=== PATIENT | male | born 1990 | race Caucasian/White ===

== ENCOUNTER 2016-11-17 19:48 | Emergency (ER) | payer OTHER ==
[~2016-11-17] VITALS: Ht 157.5 cm; Wt 66.7 kg
[2016-11-17 20:01] VITALS: BP 144/89
--- NOTE | 2016-11-17 20:37 | ED HAND/WRIST INJURY COMPLAINT ---
History of Present Illness General Chief Complaint: Hand or Wrist Injury Stated Complaint: CRUSH INJURY TO R INDEX FINGER YESTERDAY Source: patient, old records Exam Limitations: no limitations Vital Signs & Intake/Output Vital Signs & Intake/Output Vital Signs Date Time Temp Pulse Resp B/P Pulse O2 O2 Flow FiO2 Ox Delivery Rate 11/17 2046 Room Air 11/17 2000 98.6 97 18 144/89 98 Room Air Allergies Coded Allergies: penicillin G (RASH 11/17/16) Reconcile Medications Clindamycin HCl 300 MG CAPSULE 1 CAP PO TID INFECTION Triage Note: PT TO ED C/O CRUSH INJURY TO RT INDEX FINGER YESTERDAY. NOT WORKMAN'S COMP CASE. WAS HOLDING SOMETHING HEAVY AND FINGER WAS CRUSHEDA METAL CAGE. LAST TETANUS APPROX 5 YRS AGO. HAS PROTRUDING TISSUE FROM FINGER TIP, APPROX APPLE SEED SIZE. DID NOT WASH AREA, HAD BACITRACIN ON IT ALL DAY Triage Nurses Notes Reviewed? yes Occurred: yesterday Duration: day(s): (2), constant Timing: recent history Injury Environment: work Severity: mild, moderate Severity Numbers: 5 Pain/Injury Location: Right: 2nd finger. Context: crush Method of Injury: direct blow No Modifying Factors: none Associated Symptoms: none HPI: 26-year-old male presents to emergency room status post sustaining crush injury to the right second finger yesterday while at work when a metal cage came down on the tip of his finger. The patient states she's had persistent aching pain pulsating in nature intermittently since yesterday. He denies any other finger or hand injury he is right-hand dominant.. He denies any difficulty with range of motion of the finger there are no modifying factors or other associated symptoms otherwise. Past History Travel History Traveled to [place] past 21 day No Medical History Any Pertinent Medical History? none Surgical History Surgical History: none Psychosocial History What is your primary language Scottish Tobacco Use: Current Daily Use Daily Tobacco Use Amount/Type: => 5 Cigarettes daily ETOH Use: occasional use Illicit Drug Use: denies illicit drug use Family History Hx Contributory? No Review of Systems Review of Systems Constitutional: Reports: see HPI. All Other Systems: Reviewed and Negative Comments Review of systems: See HPI, All other systems negative. Constitutional, no chills no fever, no malaise HEENT: no sore throat no congestion Cardiovascular: No chest pain , no palpitation Skin, no rashes, no change in skin Respiratory: No dyspnea no cough no sputum GI: No nausea no vomiting, no diarrhea, : No dysuria Muscle skeletal: No joint pain, , no back pain, no neck pain, Neurologic: No numbness no headache Psych: No stress Heme/endocrine: No bruising no bleeding Immunology: No lymphadenopathy Physical Exam Physical Exam General Appearance: well developed/nourished, alert, awake Hand Left: normal inspection Hand Right: normal range of motion Comments: Well-developed well-nourished patient in no apparent distress. Head: Atraumatic, extraocular motion intact Neck: Supple, FROM, no lymphadenopathy Back: FROM, Nontender Cardiovascular: Regular rate and rhythms no murmurs rubs or gallops, Respiratory: Chest nontender.There were no bony deformities, no asymmetry. No respiratory distress. Patient speaking in full complete sentences. Breath sounds clear to auscultation bilaterally: NO W/R/R Shoulder: Atraumatic/Stable. FROM . Elbow: Atraumatic/stable. FROM. No laxity Upper arm/Forearm: Atraumatic. Nontender. No edema, 5 out of 5 event planning intern strength noted to bilateral upper extremities Hand/Wrist: Tenderness to palpation over the distal aspect of the right second finger, there is a scabbed over open avulsion injury to the distal palmar aspect of the right second finger, cap refill is within normal limits sensation is 5 out of 5 FROM both both active and passive of the finger, hand is atraumatic nontender there is no subungual hematoma Pulses: Normal/equal radial pulses bilaterally. Brisk cap refill LOWER Extremities: full range of motion Neuro: Alert and oriented x3 Skin: Warm & dry;No appreciable rash on exposed skin Psych: Mood affect normal, normal memory normal judgment. Progress Differential Diagnosis: abscess, cellulitis, contusion, compartment syndrome, dislocation, felon, fracture, sprain, tenosynovitis Plan of Care: Orders Procedure Date/time Status XRY-FINGERS, RIGHT 11/17 2006 Active X-rays ordered from triage patient is declining for pain when offered The wound was thoroughly irrigated with normal saline Betadine peroxide. Sterile dressing and splint was applied to the finger. Discussed with him his x -ray results need for close follow-up return with any concerns or signs of infection advised return anytime sooner if any concerns, loss of sensation or signs of infection which he is educated on they feel comfortable plan cleared for discharge (THOMAS HURLEY,ARPIT) Diagnostic Imaging: Viewed by Me: Radiology Read. Discussed w/RAD: Radiology Read. Radiology Impression: PATIENT: TIAN SHARMA JR PRESENT AGE: 26 PATIENT ACCOUNT NO: [id number] : 89 LOCATION: [facility] ORDERING PHYSICIAN: JEFF PULLIAM MD SERVICE DATE: 11/17/16-2006 EXAM TYPE: RAD - XRY-FINGERS, RIGHT EXAMINATION: XR FINGER, RIGHT CLINICAL INFORMATION: Right index finger injury. Pain. COMPARISON: None TECHNIQUE: Three views of the right index finger. FINDINGS: There is a small avulsion fracture at the tip of the index finger distal phalangeal tuft. Soft tissues are swollen in this region. No additional fractures. Joints are normal. IMPRESSION: Small nondisplaced avulsion fracture at the tip of the index finger distal phalangeal tuft DICTATED BY: KRISTIN ANDERS MD DATE/TIME DICTATED:11/17/162058 IMAGING CENTER MANAGER:MYRNA DATE/TIME TRANSCRIBED:11/17/162058 CONFIDENTIAL, DO NOT COPY WITHOUT APPROPRIATE AUTHORIZATION. <Electronically signed in Other Vendor System> SIGNED BY: KRISTIN ANDERS MD 11/17/162103 Departure Departure Time of Disposition: 2057 Disposition: HOME OR SELF CARE Condition: Stable Clinical Impression Primary Impression: Closed fracture of tuft of distal phalanx of finger Referrals: LV RANDOLPH,RONALDO Hook (PCP/Family) Additional Instructions: Keep area clean and covered. Splint as discussed clindamycin for wound prophylaxis. Observe for any concerns or signs of infection including redness warmth swelling discharge fever chills difficulty with range of motion of finger or any other concerns. This prescription was sent to your pharmacy Departure Forms: Customer Survey General Discharge Information Prescriptions: Current Visit Scripts Clindamycin HCl 1 CAP PO TID #15 CAP
[2016-11-17] MEDS ORDERED: CLINDAMYCIN HC300 M1 PO (20:59)
--- NOTE | 2016-11-17 21:04 | RADIOLOGY REPORT ---
EXAMINATION: XR FINGER, RIGHT CLINICAL INFORMATION: Right index finger injury. Pain. COMPARISON: None TECHNIQUE: Three views of the right index finger. FINDINGS: There is a small avulsion fracture at the tip of the index finger distal phalangeal tuft. Soft tissues are swollen in this region. No additional fractures. Joints are normal. IMPRESSION: Small nondisplaced avulsion fracture at the tip of the index finger distal phalangeal tuft
== END 2016-11-17 21:04 ==
LOC: ERH 19:48
DX: S62.630A Displaced fracture of distal phalanx of right index finger, initial encounter for closed fracture (principal); W23.0XXA Caught, crushed, jammed, or pinched between moving objects, initial encounter
CPT/HCPCS: 73140-RT

== ENCOUNTER 2016-12-01 11:38 | Emergency (ER) | payer OTHER ==
[~2016-12-01] VITALS: Ht 157.5 cm; Wt 65.8 kg
[~2016-12-01 11:38] MED LIST: CLINDAMYCIN HC300 M1 PO
--- NOTE | 2016-12-01 12:46 | ED GI/GU/ABDOMINAL COMPLAINT ---
History of Present Illness General Chief Complaint: Nausea, Vomiting, Diarrhea Stated Complaint: NVD Source: patient, family () Exam Limitations: no limitations Vital Signs & Intake/Output Vital Signs & Intake/Output Vital Signs Date Time Temp Pulse Resp B/P Pulse O2 O2 Flow FiO2 Ox Delivery Rate 12/01 1502 97.5 69 18 128/73 96 Room Air 12/01 1148 98.2 76 18 130/86 100 Room Air Allergies Coded Allergies: clindamycin (Intermediate, DIARRHEA 12/01/16) penicillin G (RASH 11/17/16) poison jane extract (RASH AND HIVES ALL OVER 12/01/16) poison oak extract (RASH AND HIVES ALL OVER 12/01/16) poison sumac extract (RASH AND HIVES ALL OVER 12/01/16) Reconcile Medications Ascorbate Calcium (Vitamin C) (Unknown Strength) TABLET (Unknown Dose) PO DAILY SUPPLEMENT (Reported) Lactobacillus Acidophilus (Acidophilus) 1 EACH CAPSULE 1 CAP PO DAILY PROBIOTIC (Reported) Triage Note: C/O DIARRHEA X 2 WEEKS. DENIES ABODMINAL PAIN, NAUSEA OR VOMITING. Triage Nurses Notes Reviewed? yes HPI: Patient is a 26 year old male presents complaining of diarrhea x 2 weeks, worsening x 2 days. Patient reports that diarrhea occurs any time that he eats. Patient has been able to tolerate fluids over the past 24 hours. Patient was placed on Clindamycin on 11/17 after sustaining a crush injury to his index finger. Patient reports that he has had a wound to his index finger since then that he is placing antibiotic ointment on. Mucousy diarrhea x 2 days. Abdominal cramping that is relieved with bowel movements. vomited 3 times over the past 1 week. Pain is currently 0 out of 10. One of the patient's children has influenza. Patient denies fevers, chills, hematochezia (ANETTE JIMÉNEZ) Past History Travel History Traveled to [place] past 21 day No Medical History Any Pertinent Medical History? none Neurological: NONE EENT: NONE Cardiovascular: NONE Respiratory: NONE Gastrointestinal: NONE Hepatic: NONE Renal: NONE Musculoskeletal: NONE Psychiatric: NONE Endocrine: NONE Blood Disorders: NONE Surgical History Surgical History: none Psychosocial History What is your primary language Bulgarian Tobacco Use: Current Daily Use Daily Tobacco Use Amount/Type: => 5 Cigarettes daily ETOH Use: denies use Family History Hx Contributory? No (ANETTE JIMÉNEZ) Review of Systems Review of Systems Constitutional: Denies: chills, fever. EENTM: Reports: no symptoms. Respiratory: Denies: cough, short of breath. Cardiovascular: Denies: chest pain. GI: Reports: see HPI. Genitourinary: Reports: no symptoms. Musculoskeletal: Reports: no symptoms. Skin: Reports: no symptoms, lesions. Neurological/Psychological: Reports: no symptoms. Hematologic/Endocrine: Reports: no symptoms. Immunologic/Allergic: Reports: no symptoms. (ANETTE JIMÉNEZ) Physical Exam Physical Exam General Appearance: well developed/nourished, alert, awake Head: atraumatic, normal appearance Eyes: Bilateral: normal appearance, PERRL, EOMI. Ears, Nose, Throat, Mouth: hearing grossly normal, moist mucous membrane Neck: normal inspection, supple, full range of motion Respiratory: normal breath sounds, chest non-tender, no respiratory distress Cardiovascular: regular rate/rhythm Gastrointestinal: normal bowel sounds, soft, non-tender Back: normal inspection, normal range of motion Extremities: right index finger 1 cm wound, no surrounding erythma, no drainage. Neurologic/Psych: no motor/sensory deficits, awake, alert, oriented x 3, normal gait, normal mood/affect Skin: intact, normal color, warm/dry Core Measures ACS in differential dx? No Severe Sepsis Present: No Septic Shock Present: No (ANETTE JIMÉNEZ) Progress Differential Diagnosis: C. difficile, electrolyte abnormality, intra-abdominal infection Plan of Care: Orders Procedure Date/time Status COMPREHENSIVE METABOLIC PANEL 12/01 1254 Complete CBC WITHOUT DIFFERENTIAL 12/01 1254 Complete CULTURE,STOOL 12/01 1246 Active C.DIFFICILE 12/01 1246 Active Laboratory Tests 12/01/16 1305: Anion Gap 12, Estimated GFR > 60, BUN/Creatinine Ratio 14.4, Glucose 81, Calcium 10.0, Total Bilirubin 1.2, AST 28, ALT 53, Alkaline Phosphatase 73, Total Protein 8.2, Albumin 5.1 H, Globulin 3.1, Albumin/Globulin Ratio 1.6, CBC w Diff NO MAN DIFF REQ, RBC 5.40, MCV 91.8, MCH 31.3 H, RDW 12.2, MPV 7.5, Gran % 59.0, Lymphocytes % 28.6, Monocytes % 9.2, Eosinophils % 2.9, Basophils % 0.3, Absolute Granulocytes 5.0, Absolute Lymphocytes 2.4, Absolute Monocytes 0.8 H, Absolute Eosinophils 0.2, Absolute Basophils 0, PUBS MCHC 34.1 Microbiology 12/01 1246 STOOL: Clostridium difficile Toxin A & B - ORD 12/01 1246 STOOL: Stool Culture - ORD 12/01/2016 2:36:34 PM: Patient unable to have a bowel movement in the emergency department. Patient nontoxic appearing, no peritoneal signs on exam. Patient provided with stool collecting along with an order for stool studies. Patient appears stable for discharge. Antibiotics deferred at this time. (ANETTE JIMÉNEZ) Initial ED EKG: none (ANETTE JIMÉNEZ) Departure Departure Time of Disposition: 1436 Disposition: HOME OR SELF CARE Condition: Stable Clinical Impression Primary Impression: Diarrhea Qualifiers: Diarrhea type: presumed infectious Qualified Code: A09 - Infectious gastroenteritis and colitis, unspecified Referrals: LV RANDOLPH,RONALDO Hook (PCP/Family) Additional Instructions: Follow-up with your primary doctor this week for further evaluation. Call today for appointment. If you're able to obtain a stool sample and bring it to the outpatient lab for testing. Return to the emergency department if fevers, increasing abdominal pain, unable to stay hydrated, or worsening of symptoms. Departure Forms: Customer Survey General Discharge Information (ANETTE JIMÉNEZ) PA/STAINED GLASS WINDOW DESIGNER Co-Sign Statement Statement: ED Attending supervision documentation- [] I saw and evaluated the patient. I have also reviewed all the pertinent lab results and diagnostic results. I agree with the findings and the plan of care as documented in the PA's/STAINED GLASS WINDOW DESIGNER's documentation. x I have reviewed the ED Record and agree with the PA's/STAINED GLASS WINDOW DESIGNER's documentation. [] Additions or exceptions (if any) to the PAs/STAINED GLASS WINDOW DESIGNER's note and plan are summarized below: [] (PETRA RANDOLPH,MARYAM)
[2016-12-01 13:16] LABS: ABSOLUTE BASOPHIL COUNT 0 /CUMM (0.0-0.2); ABSOLUTE EOSINOPHIL COUNT 0.2 /CUMM (0.0-0.7); ABSOLUTE LYMPH COUNT 2.4 /CUMM (1.2-3.4); ABSOLUTE MONOCYTE COUNT 0.8 /CUMM (0.10-0.60); BASOPHIL % 0.3 % (0.0-2.0); EOSINOPHIL % 2.9 % (0-5); HEMATOCRIT 49.5 % (42-52); MEAN CORPUSCULAR HGB 31.3 PG (27.0-31.0); MEAN CORPUSCULAR HGB CONC 34.1 G/DL (33.0-37.0); MEAN CORPUSCULAR VOLUME 91.8 FL (80.0-94.0); MEAN PLATELET VOLUME 7.5 FL (7.4-10.4); PLATELET COUNT 277 /CUMM (130-400); RBC DISTRIBUTION WIDTH 12.2 % (11.5-14.5); WHITE BLOOD CELL COUNT 8.5 /CUMM (4.8-10.8)
[2016-12-01] MEDS ORDERED: ACIDOPHILUS1 EACH PO (14:22)
[2016-12-01] MEDS ORDERED: VITAMIN C500 M6 PO (14:23)
[2016-12-01 15:02] VITALS: BP 128/73
== END 2016-12-01 15:19 ==
LOC: ERH 11:38
PROVIDERS: Physician Assistant
DX: R19.7 Diarrhea, unspecified (principal)
CPT/HCPCS: 87045